=== PATIENT | female | born 1960 | race Caucasian/White ===

== ENCOUNTER → 2016-07-28 | Outpatient (CLI) | payer BC ==
--- NOTE | 2016-07-28 14:31 | PDGENHP ---
History and Physical - Chief Complaint acute loss of consciousness - History of Present Illness primary care provider: Dr. Pemberton HPI: 56-year-old female presenting with acute loss of consciousness characterized as sudden, with precipitating associated lightheadedness and feeling of weakness while she was undergoing mammography. The patient had not recently been repositioned and did not experience any trauma she was gently lowered to the floor by the mammography tach. Loss of consciousness lasted only several seconds and she regained consciousness without any intervention. The onset was at approximately 1:30 p.m. on 07/28/2016. Duration was only several seconds. She did not experience any postictal symptoms, no nausea, no vomiting, patient reports that she ate breakfast on the morning of presentation without any incidence. Although the patient reports that she has had similar episodes in the past, her denies these. Patient reports he had otherwise been feeling well on the day prior to this presentation and denies any other symptoms. Of note, the patient's systolic blood pressure was 130 and her heart rate was in the 80s when vital signs were checked several minutes after the episode. 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 Uterine cancer - Surgical History Additional surgical history: hysterectomy - Family History Additional family history: patient's mother lived to be 90 - Social History Smoking Status: Never smoked Alcohol Use: None Drug Use: None Additional social history: sedentary at baseline, splits time between [employer] 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 [employer] Review of Systems ROS: 10pt was reviewed & negative except for what was stated in HPI & below Neurological: Reports: weakness, other ( loss of consciousness) Physical Exam Constitutional: no apparent distress, appears nourished, not in pain Eyes: PERRL, anicteric sclera, EOMI Ears, Nose, Mouth, Throat: moist mucous membranes, hearing normal, ears appear normal, no oral mucosal ulcers Cardiovascular: regular rate and rhythym, no murmur, rub, or gallop, No carotid bruit, No edema Respiratory: no respiratory distress, no rales or rhonchi, clear to auscultation Gastrointestinal: normoactive bowel sounds, soft, non-tender abdomen, no palpable masses Neurologic: AAOx3, sensation intact bilaterally, other ( notable dysarthria), No weakness ( motor strength 5/5 bilateral upper and lower extremities) Psychiatric: interacting appropriately, not anxious, not encephalopathic, thought process linear Assessment & Plan Assessment: 56-year-old female experiencing acute syncopal episode, stat team called in mammography. Plan: 1. Syncope. Acute, new problem this provider, further workup is suggested. The patient experienced a syncopal episode and experienced recurrence of symptoms with a systolic blood pressure of 78. I suspect the patient is either orthostatic or experiencing some other specific etiology of her hypotension. That being said, the patient's systolic blood pressure was 130 with a heart rate of 80 on my physical exam of the patient, suggesting that her symptoms are mostly orthostatic and she may simply be hypovolemic. That being said, the patient should receive formal evaluation in the emergency department and this has been recommended to the patient and her . - heart monitor rhythm reviewed, demonstrates a normal sinus mechanism, personally interpreted - reviewed outside records including 12/18/2013 [employer] report by Kesha Ahumada, reports the patient has poor insight into her deficits and this may be somewhat influencing her present decision making - most recent lab work from 05/09/2016 demonstrating normocytic anemia with slight iron deficiency notably saturation of 11%, TIBC 412, iron level 44, suggesting the patient may have a slow insidious GI bleed contributing to her anemia verses an oral iron deficient component - if the patient does report to the emergency department, would recommend observation overnight after orthostatics have formally been performed, she has received IV fluids, she has received a formal EKG, and she has had lab work to ensure that she does not have any other insidious pathologies such as acute kidney injury, myocardial ischemia, worsening anemia, lactic acidosis -if the patient and her choose not to go to the emergency department, would recommend immediate follow-up at Dr. Pemberton office on the afternoon of this event It should be noted that this consultation was performed in the setting of responding to a stat team call while patient was in outpatient mammography.
== END ==
LOC: FIMAGING 13:17
DX: Z12.31 Encounter for screening mammogram for malignant neoplasm of breast (principal); Z53.8 Procedure and treatment not carried out for other reasons; R55 Syncope and collapse; D64.9 Anemia, unspecified; I95.9 Hypotension, unspecified
CPT/HCPCS: G0202

== ENCOUNTER → 2016-10-07 | Outpatient (CLI) | payer BC ==
[~2016-10-07] MED LIST: IOPAMIDOL (ISOVUE-300) 100 ML BTL ONE
== END ==
LOC: FIMAGING 11:35
PROVIDERS: ATTEND Surgery
DX: C18.9 Malignant neoplasm of colon, unspecified (principal); K80.20 Calculus of gallbladder without cholecystitis without obstruction; Q63.1 Lobulated, fused and horseshoe kidney
CPT/HCPCS: Q9967

== ENCOUNTER 2016-10-14 06:26 | Inpatient (IN) | payer BC ==
[2016-10-14] MEDS ORDERED: LIDOCAINE 1% 2 ML INJ ONE (07:39)
[2016-10-14] MEDS ORDERED: BUPIVACAINE 0.5% 30 ML SDV ONE (07:46)
[2016-10-14] MEDS ORDERED: LIDOCAINE 1% 300 MG/30 ML SDV ONE (07:46)
[2016-10-14] MEDS ORDERED: LIDOCAINE 1% 5 ML SDV ID PRN (07:52)
[2016-10-14] MEDS ORDERED: LR 1,000 ML IV ONE (07:52)
[2016-10-14] MEDS ORDERED: ERTAPENEM 1 GM in NS 100 ML IV ONE (08:31)
--- NOTE | 2016-10-14 09:51 | PDANEPAE ---
ANE History of Present Illness colon ca ANE Past Medical History - Cardiovascular History Hx Hypertension: No Hx Arrhythmias: No Hx Chest Pain: No Hx Coronary Artery / Peripheral Vascular Disease: No Hx CHF / Valvular Disease: No Hx Palpitations: No - Pulmonary History Hx COPD: No Hx Asthma/Reactive Airway Disease: No Hx Recent Upper Respiratory Infection: No Hx Oxygen in Use at Home: No - Neurologic History Hx Cerebrovascular Accident: Yes Hx Seizures: No Hx Dementia: No - Endocrine History Hx Diabetes: No - Renal History Hx Renal Disorders: No - Liver History Hx Hepatic Disorders: No - Neurological & Psychiatric Hx Hx Neurological and Psychiatric Disorders: No - Cancer History Hx Cancer: Yes - Congenital Disorder History Hx Congenital Disorders: No - GI History Hx Gastrointestinal Disorders: Yes - Chronic Pain History Chronic Pain: No ANE Review of Systems - Exercise capacity METS (RN): 4 METS - Systems Neurological: Reports: other (cva/trach-speech impediment, otherwise health) Hematologic/Lymphatic: Reports: blood clots (dvt/pe/cva) ANE Patient History - Allergies Allergies/Adverse Reactions: No Known Allergies Allergy (Verified 10/13/16 17:12) - Home Medications Home Medications: Rivaroxaban [Xarelto] 20 mg PO DAILY18 10/12/16 [Last Taken 10/11/16 21:00] - NPO status NPO Since - Liquids (Date): 10/13/16 NPO Since - Liquids (Time): 23:30 NPO Since - Solids (Date): 10/13/16 NPO Since - Solids (Time): 08:00 - Anes Hx Anes Hx: no prior problems - Smoking Hx Smoking Status: Never smoked ANE Labs/Vital Signs - Labs - CBC RBC: 34 - Labs - BMP Sodium: bmp reviewed and ok - Vital Signs Blood Pressure: 130/93 Heart Rate: 93 Respiratory Rate: 16 O2 Sat (%): 93 Height: 170.18 cm Weight: 81.647 kg ANE Physical Exam - Airway Neck exam: decreased ROM Mallampati Score: Class 2 Mouth exam: normal dental/mouth exam - Pulmonary Pulmonary: no respiratory distress - Cardiovascular Cardiovascular: regular rate and rhythym - ASA Status ASA Status: II ANE Anesthesia Plan Anesthesia Plan: general endotracheal anesthesia
[2016-10-14] MEDS ORDERED: MIDAZOLAM 2 MG/2 ML VIAL IVP ONE ×2 (09:59)
[2016-10-14] MEDS ORDERED: MIDAZOLAM 2 MG/2 ML VIAL ONE (10:07)
[2016-10-14] MEDS ORDERED: fentaNYL 100 MCG/2 ML INJ ONE (10:13)
[2016-10-14] MEDS ORDERED: PROPOFOL/EMULSION 500 MG/50 ML BOTTLE IV ONE (10:14)
[2016-10-14] MEDS ORDERED: LIDOCAINE 2% 100 MG/5 ML SYR ONE (10:15)
[2016-10-14] MEDS ORDERED: ONDANSETRON 4 MG/2 ML VIAL ONE ×4 (10:15→14:01)
[2016-10-14] MEDS ORDERED: ROCURONIUM 50 MG/5 ML VIAL ONE ×2 (10:15→12:26)
[2016-10-14] MEDS ORDERED: DEXAMETHASONE 4 MG/ML VIAL ONE ×2 (10:15)
[2016-10-14] MEDS ORDERED: epHEDrine SULFATE 10 MG/ML SYR ONE ×2 (10:31)
[2016-10-14] MEDS ORDERED: LIDOCAINE HCL 160 MG/4 ML LTA KIT TP ONE (11:39)
[2016-10-14] MEDS ORDERED: PETROLAT,WHT/MIN OIL/SOD CHL 3.5 GM OPHT.OINT ONE (11:39)
[2016-10-14] MEDS ORDERED: RANITIDINE 50 MG/2 ML VIAL ONE (11:40)
[2016-10-14] MEDS ORDERED: SUGAMMADEX SODIUM 200 MG/2 ML VIAL IVP ONE ×2 (11:40→14:18)
[2016-10-14] MEDS ORDERED: morphINE *ANESTHESIA ONLY* 10 MG/ML VIAL ONE (11:52)
[2016-10-14] MEDS ORDERED: PROPOFOL 200 MG/20 ML VIAL ONE ×3 (12:03→14:08)
[2016-10-14] MEDS ORDERED: PHENYLEPHRINE HCL 100 MCG/ML SYR ONE (13:02)
[2016-10-14] MEDS ORDERED: ONDANSETRON 4 MG/2 ML VIAL IVP PRN (13:55)
[2016-10-14] MEDS ORDERED: ACETAMINOPHEN 500 MG TAB PO PRN (13:55)
[2016-10-14] MEDS ORDERED: LABETALOL HCL 5 MG/ML 20 ML MDV IVP PRN (13:55)
[2016-10-14] MEDS ORDERED: fentaNYL 100 MCG/2 ML INJ IVP PRN (13:55)
[2016-10-14] MEDS ORDERED: LR 500 ML IV PRN (13:55)
[2016-10-14] MEDS ORDERED: NALOXONE HCL 0.4 MG/ML INJ IVP PRN (13:55)
[2016-10-14] MEDS ORDERED: ALBUTEROL 3 ML DEYVIAL IH PRN (13:55)
[2016-10-14] MEDS ORDERED: MEPERIDINE 25 MG/ML SYR IVP PRN (13:55)
[2016-10-14] MEDS ORDERED: PROMETHAZINE HCL 25 MG/ML INJ IVP PRN (13:55)
[2016-10-14] MEDS ORDERED: METOCLOPRAMIDE 10 MG/2 ML VIAL IVP PRN (13:55)
[2016-10-14] MEDS ORDERED: OXYCODONE/APAP 5/325 TAB PO PRN (13:55)
[2016-10-14] MEDS ORDERED: DEXAMETHASONE 4 MG/ML VIAL IVP PRN (13:55)
[2016-10-14] MEDS ORDERED: HYDROCODONE/APAP 5/325 TAB PO PRN (13:55)
--- NOTE | 2016-10-14 14:46 | POSTOPPROG ---
Post Op Note Date of Operation: 10/14/16 Surgeon: Robb Anderson Fire Observer: none Anesthesiologist: Joe Anesthesia: GET(General Endotracheal) Pre-op Diagnosis: Splenic flexure cancer Post-op Diagnosis: same Procedure: left colectomy Findings: large splenic mass, air tight anastomosis Inf/Abcess present in the surg proc area at time of surgery?: No EBL: 50-100 Complications: none Specimen(s): left colon proximal end stapled
[2016-10-14] MEDS: LR 1,000 ML IV SCH ×2 (16:03→23:22)
--- NOTE | 2016-10-14 18:43 | POSTANESTH ---
Post Anesthetic Evaluation Cardiovascular Status: Normal, Stable Respiratory Status: Normal, Stable Level of Consciousness/Mental Status: Can Participate in Eval Pain Control: Adequate, Prn Tx Ordered Nausea/Vomiting Control: Adequate, Prn Tx Ordered Complications Possibly Related to Anesthesia: None Noted
--- NOTE | 2016-10-15 05:09 | CPEKG ---
Heart Rate: 80 RR Interval: 750 P-R Interval: 156 QRSD Interval: 100 QT Interval: 364 QTC Interval: 420 P [place]: 63 QRS [place]: 39 T Wave [place]: 19 EKG Severity - BORDERLINE ECG - EKG Impression: SINUS RHYTHM Electronically Signed By: Heriberto Edwards 15-Oct-2016 08:55:21
[2016-10-15] MEDS: HEPARIN 5,000 UNIT/0.5 ML SYR SC SCH ×3 (06:41→20:52)
[2016-10-15] MEDS: LR 1,000 ML IV SCH ×2 (06:42→20:52)
[2016-10-15 07:38] LABS: % IMMATURE GRANULYOCYTES 0.5 % (0.0-1.1); ABSOLUTE IMMATURE GRANULOCYTES 0.06 10^3/uL (0.00-0.10); ADD DIFF? NO; ADD MORPH? NO; ADD SCAN? NO; ATYPICAL LYMPHOCYTE FLAG 0 (0-99); FRAGMENT RBC FLAG 20 (0-99); HEMATOCRIT 25.1 % (38.0-47.0); HEMOGLOBIN 7.8 g/dL (12.6-16.3); LEFT SHIFT FLG 20 (0-99); LIPEMIA HEMOLYSIS FLAG 80 (0-99); MEAN CELL HEMOGLOBIN 22.2 pg (27.9-34.1); MEAN CELL HEMOGLOBIN CONCENTR. 31.1 g/dL (32.4-36.7); MEAN CELL VOLUME 71.3 fL (81.5-99.8); MEAN PLATELET VOLUME 9.3 fL (8.7-11.7); PLATELET CLUMPS FLAG 0 (0-99); PLATELET COUNT 433 10^3/uL (150-400); RED BLOOD CELL COUNT 3.52 10^6/uL (4.18-5.33); RED CELL DISTRIBUTION WIDTH 16.3 % (11.5-15.2)
[2016-10-15 07:51] LABS: ANION GAP 5 mEq/L (8-16); CALCIUM 8.4 mg/dL (8.5-10.4); CARBON DIOXIDE 24 mEq/l (22-31); CHLORIDE 107 mEq/L (97-110); CREATININE 0.8 mg/dL (0.6-1.0); GLOMERULAR FILTRATION RATE > 60; GLUCOSE 124 mg/dL (70-100); POTASSIUM 3.7 mEq/L (3.5-5.2); SODIUM 136 mEq/L (134-144)
[2016-10-15 08:02] LABS: TROPONIN I < 0.012 ng/mL (0-0.034)
[2016-10-15] MEDS ORDERED: KETOROLAC 30 MG/1 ML SDV IVP ONE (08:26)
--- NOTE | 2016-10-15 09:14 | SOAPPROG ---
SOAP Progress Note Assessment/Plan: Assessment/Plan: POD#1 c/o chest pain this am. EKG normal. troponin nl. Hx of embolus Heparin started, Xarelto ordered for 10/15 VSS Hgb/Hct 7.8/24 from 03/02 Min OR blood loss Abd distended likely post op acute blood loss anemia 2 units pRBC ordered. Cont clear liq Medicine consult Will see later today H/H after transfusion 10/15/16 09:11 Objective: Vital Signs Temp Pulse Resp BP Pulse Ox 36.2 C 90 18 116/71 94 10/15/16 07:57 10/15/16 07:57 10/15/16 07:57 10/15/16 07:57 10/15/16 07:57 Laboratory Results 10/15/16 07:30 10/15/16 07:30 10/14/16 10/15/16 10/16/16 05:59 05:59 05:59 Intake Total 2900 Output Total 650 Balance 2250 ICD10 Worksheet Patient Problems: Problems Problem Status Onset Colon adenocarcinoma Acute - ICD10 Problem Qualifiers (1) Colon adenocarcinoma
--- NOTE | 2016-10-15 13:18 | GCON ---
[f rep st] CONSULTATION INTERNAL MEDICINE CONSULTATION DATE OF CONSULTATION: 10/14/2016 REFERRING PHYSICIAN: Robb Anderson MD REASON FOR CONSULTATION: History of PE, chest pain. HISTORY OF PRESENT ILLNESS: This is a 56-year-old female who underwent a partial colectomy yesterda y for a large splenic flexure mass that was adenocarcinoma. This was found from routine screening c olonoscopy. She does have probable iron deficiency anemia. She has a history of a massive PE resul ting in cardiac arrest and a 3 week hospital stay in [place]. At that time, she was found to have a uterine mass and uterine cancer, and that was resected later on. She has been on Xarelto for antic oagulation. This was discontinued several days prior to surgery. This morning, she had some chest pain, but it is now resolved. She is denying any shortness of breath at this time. She has a littl e bit of throat irritation. She does also complain of abdominal distention. No flatus today. REVIEW OF SYSTEMS: 10-point review of systems obtained, other than stated above is negative. PAST MEDICAL HISTORY: 1. Uterine cancer. 2. History of PE and DVT. PAST SURGICAL HISTORY: Knee surgery, tracheostomy, PEG tube, hysterectomy. FAMILY HISTORY: Mother with hypertension. SOCIAL HISTORY: No smoking. Occasional alcohol. PHYSICAL EXAMINATION: VITAL SIGNS: Afebrile, blood pressure is 117/73, heart rate 80, oxygen satur ation is at 97% on 1 L. GENERAL: Patient is well developed, no apparent distress. HEENT: Nonicte emelyn sclerae. Extraocular movements intact. Moist mucous membranes. NECK: Supple. A little bit o f fullness in the thyroid area. LUNGS: Good effort. Clear to auscultation bilaterally. CARDIOVAS CULAR: Regular rate and rhythm. No murmurs, gallops. ABDOMEN: Distended. Midline incision noted . Decreased bowel sounds. Soft. Mild tenderness. EXTREMITIES: No clubbing, cyanosis, or edema. SKIN: Without rash, warm, intact. NEUROLOGIC: Awake, alert, and oriented x3, moving all 4 extrem ities equally. PSYCH: Normal mood and affect. LABORATORIES: White blood cell count is 12 hemoglobin 7.8 with a preoperative hemoglobin of 10.5. There is a microcytic anemia. She had a ferritin of 6 in May of this year. CEA is 3. Troponin negative today. EKG personally reviewed and interpreted showed normal sinus rhythm, no ischemic changes. ASSESSMENT: This is a 56-year-old female who is status post partial colectomy due to colon cancer a nd a previous history of massive pulmonary embolism and deep venous thrombosis. PLAN: 1. Colon cancer. This has been resected. Further management per Surgery. 2. Chest pain. This has resolved, and EKG is negative. Troponin is negative as well. I think thi s is unlikely to be a PE as her symptoms have resolved and she has not been off her anticoagulation that long. We will continue to monitor. 3. History of PE and DVT. It looks like she has been started on subcu heparin today with a plan of starting Xarelto tonight. I will discuss it with Dr. Anderson but probably prefer maybe a day of fu ll dose Lovenox prior as this is completely metabolized within 12 hours in case there is some bleedi ng complication. It does take longer for Xarelto it seems to come out of the system. She does have normal creatinine. 4. Iron deficiency anemia. We will give a few doses of IV iron while she is here in the hospital. It appears that she has been written for a little bit of blood. Thank you for this consultation. Will follow with you. /[id number]/MODL
[2016-10-15] MEDS: SODIUM FERRIC GLUCONAT/SUCROSE 125 MG in NS 100 ML IV SCH (15:44)
[2016-10-15] MEDS ORDERED: RIVAROXABAN 20 MG TAB PO SCH (18:00)
[2016-10-15 18:55] LABS: HEMOGLOBIN 9.3 g/dL (12.6-16.3)
[2016-10-16 05:06] LABS: % IMMATURE GRANULYOCYTES 0.5 % (0.0-1.1); ABSOLUTE IMMATURE GRANULOCYTES 0.06 10^3/uL (0.00-0.10); ADD DIFF? NO; ADD MORPH? NO; ADD SCAN? NO; ATYPICAL LYMPHOCYTE FLAG 0 (0-99); FRAGMENT RBC FLAG 0 (0-99); HEMATOCRIT 28.6 % (38.0-47.0); HEMOGLOBIN 9.1 g/dL (12.6-16.3); LEFT SHIFT FLG 0 (0-99); LIPEMIA HEMOLYSIS FLAG 80 (0-99); MEAN CELL HEMOGLOBIN 23.5 pg (27.9-34.1); MEAN CELL HEMOGLOBIN CONCENTR. 31.8 g/dL (32.4-36.7); MEAN CELL VOLUME 73.7 fL (81.5-99.8); MEAN PLATELET VOLUME 9.1 fL (8.7-11.7); PLATELET CLUMPS FLAG 0 (0-99); PLATELET COUNT 328 10^3/uL (150-400); RED BLOOD CELL COUNT 3.88 10^6/uL (4.18-5.33)
[2016-10-16 05:24] LABS: ALANINE AMINOTRANSFERASE 25 IU/L (9-52); ALBUMIN 2.4 g/dL (3.5-5.0); ALKALINE PHOSPHATASE 51 IU/L (38-126); ANION GAP 3 mEq/L (8-16); ASPARTATE AMINOTRANSFERASE 24 IU/L (14-46); CALCIUM 8.2 mg/dL (8.5-10.4); CARBON DIOXIDE 24 mEq/l (22-31); CHLORIDE 107 mEq/L (97-110); CREATININE 0.7 mg/dL (0.6-1.0); GLOMERULAR FILTRATION RATE > 60; GLUCOSE 101 mg/dL (70-100); POTASSIUM 3.7 mEq/L (3.5-5.2); SODIUM 134 mEq/L (134-144); TOTAL PROTEIN 4.4 g/dL (6.3-8.2)
[2016-10-16] MEDS: HEPARIN 5,000 UNIT/0.5 ML SYR SC SCH ×2 (05:25→13:41)
[2016-10-16] MEDS: SODIUM FERRIC GLUCONAT/SUCROSE 125 MG in NS 100 ML IV SCH (08:55)
[2016-10-16] MEDS: LR 1,000 ML IV SCH ×2 (14:47→23:01)
--- NOTE | 2016-10-16 15:25 | HOSPPROG ---
Hospitalist Progress Note Assessment/Plan: * colon cancer status post resection * Doing well * Diet will be advanced * Possibly home tomorrow * chest pain * Troponins are negative * Chest pain is resolved * Possibly musculoskeletal or GERD * history of massive PE * Restart Xarelto tonight * iron deficiency anemia/acute blood loss anemia * Hemoglobin stable * Continue IV iron Subjective: No new complaints. Denies chest pain. Abdominal distention better. Passing gas and having some bowel movement Objective: Vital Signs Temp Pulse Resp BP Pulse Ox 37.5 C 79 16 111/65 92 10/16/16 07:46 10/16/16 07:46 10/16/16 07:46 10/16/16 07:46 10/16/16 07:46 Laboratory Results 10/16/16 04:53 10/16/16 04:53 10/15/16 10/16/16 10/17/16 05:59 05:59 05:59 Intake Total 2900 1220 Output Total 650 1075 Balance 2250 145 Discussed with surgery - Physical Exam Constitutional: no apparent distress, appears nourished, not in pain Eyes: anicteric sclera, EOMI Ears, Nose, Mouth, Throat: moist mucous membranes, hearing normal, ears appear normal Cardiovascular: regular rate and rhythym, no murmur, rub, or gallop Respiratory: no respiratory distress, no rales or rhonchi Gastrointestinal: normoactive bowel sounds, other (Slightly distended soft nontender) Skin: warm Neurologic: AAOx3 Psychiatric: interacting appropriately, not anxious, not encephalopathic, thought process linear ICD10 Worksheet Patient Problems: Problems Problem Status Onset Colon adenocarcinoma Acute
--- NOTE | 2016-10-16 16:15 | SOAPPROG ---
SOAP Progress Note Assessment/Plan: Assessment/Plan: POD#2 c/o chest pain yesterday. It has since resolved. EKG normal. troponin nl. Hx of embolus Heparin started, Xarelto ordered for 10/16 VSS Bowel movement and flatus today Regular rate and rhythm Clear to auscultation bilaterally Abdomen is soft nondistended incision clean dry and intact no signs of infection or herniation Extremities without edema Advance to low residue diet,. Subq heparin and start Xarelto Appreciate Medicine consult Anticipate 24-48 hour hospital stay 10/15/16 09:11 10/16/16 16:13 Objective: Vital Signs Temp Pulse Resp BP Pulse Ox 37.1 C 82 16 138/76 H 91 L 10/16/16 15:28 10/16/16 15:28 10/16/16 15:28 10/16/16 15:28 10/16/16 15:28 Laboratory Results 10/16/16 04:53 10/16/16 04:53 10/15/16 10/16/16 10/17/16 05:59 05:59 05:59 Intake Total 2900 1220 300 Output Total 650 1075 700 Balance 2250 145 -400 ICD10 Worksheet Patient Problems: Problems Problem Status Onset Colon adenocarcinoma Acute - ICD10 Problem Qualifiers (1) Colon adenocarcinoma
[2016-10-16] MEDS ORDERED: oxyCODONE IR 5 MG TAB PO PRN (16:17)
[2016-10-16] MEDS: RIVAROXABAN 20 MG TAB PO SCH (17:52)
[2016-10-16] MEDS: ACETAMINOPHEN 325 MG TAB PO PRN (18:26)
[2016-10-17] MEDS: LR 1,000 ML IV SCH (06:11)
--- NOTE | 2016-10-17 07:31 | SOAPPROG ---
SOAP Progress Note Assessment/Plan: Assessment/Plan: POD#3 status post left colectomy for obstructing colon cancer 10/16/16 04:53 10/16/16 04:53 Patient ABO/Rh A POSITIVE 10/14/16 08:10 Total Bilirubin 2.0 mg/dL (0.1-1.4) H 10/16/16 04:53 AST 24 IU/L (14-46) 10/16/16 04:53 ALT 25 IU/L (9-52) 10/16/16 04:53 No complaints tylenol for pain Tolerating diet liquid stool VSS Regular rate and rhythm Clear to auscultation bilaterally Abdomen is soft nondistended incision clean dry and intact no signs of infection or herniation Extremities without edema Advanced to low residue diet. Xarelto Appreciate Medicine consult Fiber in diet repeat CBC 10/18 Anticipate 24-48 hour hospital stay 10/15/16 09:11 10/16/16 16:13 10/17/16 07:28 Objective: Vital Signs Temp Pulse Resp BP Pulse Ox 36.9 C 70 16 123/76 H 93 10/17/16 04:00 10/17/16 04:00 10/17/16 04:00 10/17/16 04:00 10/17/16 04:00 Laboratory Results 10/16/16 04:53 10/16/16 04:53 10/16/16 10/17/16 10/18/16 05:59 05:59 05:59 Intake Total 1220 600 Output Total 1075 2700 350 Balance 145 -2100 -350 ICD10 Worksheet Patient Problems: Problems Problem Status Onset Colon adenocarcinoma Acute - ICD10 Problem Qualifiers (1) Colon adenocarcinoma
--- NOTE | 2016-10-17 10:07 | HOSPPROG ---
Hospitalist Progress Note Assessment/Plan: * colon cancer status post resection * Doing well * diet advancing * chest pain * Troponins are negative * Chest pain is resolved * Possibly musculoskeletal or GERD * history of massive PE * Restart Xarelto tonight * iron deficiency anemia/acute blood loss anemia * Hemoglobin stable * Continue IV iron for 3 doses total Subjective: no new complaints. Beginning to tolerate diet Objective: Vital Signs Temp Pulse Resp BP Pulse Ox 36.6 C 61 18 103/66 96 10/17/16 09:01 10/17/16 09:01 10/17/16 09:01 10/17/16 09:01 10/17/16 09:01 Laboratory Results 10/16/16 04:53 10/16/16 04:53 10/16/16 10/17/16 10/18/16 05:59 05:59 05:59 Intake Total 1220 600 Output Total 1075 2700 350 Balance 145 -2100 -350 - Physical Exam Constitutional: no apparent distress, appears nourished, not in pain Eyes: anicteric sclera, EOMI Ears, Nose, Mouth, Throat: moist mucous membranes, hearing normal Respiratory: no respiratory distress Gastrointestinal: normoactive bowel sounds, soft, non-tender abdomen, other ( slight distention) Neurologic: AAOx3 Psychiatric: interacting appropriately, not anxious, not encephalopathic, thought process linear ICD10 Worksheet Patient Problems: Problems Problem Status Onset Colon adenocarcinoma Acute
[2016-10-17] MEDS: SODIUM FERRIC GLUCONAT/SUCROSE 125 MG in NS 100 ML IV SCH (10:26)
[2016-10-17] MEDS: PSYLLIUM METAMUCIL 1 PKT PO SCH (10:31)
[2016-10-17] MEDS: ONDANSETRON 4 MG/2 ML VIAL IVP PRN (13:52)
[2016-10-17] MEDS: PROMETHAZINE HCL 25 MG/ML INJ IVP PRN ×2 (18:42→21:19)
[2016-10-17] MEDS: RIVAROXABAN 20 MG TAB PO SCH (18:42)
[2016-10-18] MEDS: PROMETHAZINE HCL 25 MG/ML INJ IVP PRN ×3 (04:53→14:50)
[2016-10-18 05:18] LABS: HEMATOCRIT 35.6 % (38.0-47.0); HEMOGLOBIN 10.9 g/dL (12.6-16.3); MEAN CELL HEMOGLOBIN 22.9 pg (27.9-34.1); MEAN CELL HEMOGLOBIN CONCENTR. 30.6 g/dL (32.4-36.7); MEAN CELL VOLUME 74.9 fL (81.5-99.8); RED BLOOD CELL COUNT 4.75 10^6/uL (4.18-5.33); RED CELL DISTRIBUTION WIDTH 17.3 % (11.5-15.2)
[2016-10-18] MEDS: PSYLLIUM METAMUCIL 1 PKT PO SCH (08:09)
[2016-10-18] MEDS ORDERED: D5W 1/2 NS W/ 20 KCl/L 1,000 ML IV SCH (10:15)
--- NOTE | 2016-10-18 10:56 | HOSPPROG ---
Hospitalist Progress Note Assessment/Plan: * colon cancer status post resection * persistent nausea * chest pain * Troponins are negative * Chest pain is resolved * Possibly musculoskeletal or GERD * GERD * we will start Pepcid * vomiting * is passing gas * abdomen is benign * perhaps persistent effects of anesthesia * try premedicating with anti nausea medicine * history of massive PE * continue Xarelto * iron deficiency anemia/acute blood loss anemia * status post 3 doses of IV iron Subjective: Had vomiting yesterday. Is still nauseous. Is complaining of some heartburn. Objective: Vital Signs Temp Pulse Resp BP Pulse Ox 37.0 C 82 14 112/80 96 10/18/16 08:00 10/18/16 08:00 10/18/16 08:00 10/18/16 08:00 10/18/16 08:00 Laboratory Results 10/18/16 05:00 10/16/16 04:53 10/17/16 10/18/16 10/19/16 05:59 05:59 05:59 Intake Total 600 450 Output Total 2700 1250 Balance -2100 -800 - Physical Exam Constitutional: no apparent distress, appears nourished, not in pain Eyes: anicteric sclera Ears, Nose, Mouth, Throat: hearing normal Cardiovascular: regular rate and rhythym, no murmur, rub, or gallop Respiratory: no respiratory distress, no rales or rhonchi, clear to auscultation Gastrointestinal: other ( Distended soft. Nontender. Decreased bowel sounds) Skin: warm Neurologic: AAOx3 Psychiatric: interacting appropriately, not anxious, not encephalopathic, thought process linear ICD10 Worksheet Patient Problems: Problems Problem Status Onset Colon adenocarcinoma Acute
[2016-10-18] MEDS: FAMOTIDINE 20 MG/NACL 50 ML IV SCH ×2 (11:01→21:02)
[2016-10-18] MEDS: ONDANSETRON 4 MG/2 ML VIAL IVP PRN (11:01)
[2016-10-18 16:38] LABS: ALANINE AMINOTRANSFERASE 25 IU/L (9-52); ALBUMIN 2.7 g/dL (3.5-5.0); ALKALINE PHOSPHATASE 56 IU/L (38-126); ANION GAP 11 mEq/L (8-16); ASPARTATE AMINOTRANSFERASE 17 IU/L (14-46); BILIRUBIN,TOTAL 1.1 mg/dL (0.1-1.4); CALCIUM 9.1 mg/dL (8.5-10.4); CARBON DIOXIDE 18 mEq/l (22-31); CHLORIDE 108 mEq/L (97-110); CREATININE 0.7 mg/dL (0.6-1.0); GLOMERULAR FILTRATION RATE > 60; GLUCOSE 101 mg/dL (70-100); SODIUM 137 mEq/L (134-144); TOTAL PROTEIN 5.2 g/dL (6.3-8.2)
[2016-10-18] MEDS ORDERED: DIAZEPAM 10 MG/2 ML SYR IVP ONE (17:45)
[2016-10-18] MEDS ORDERED: NS 1,000 ML IV ONE (17:57)
--- NOTE | 2016-10-18 17:57 | SOAPPROG ---
SOAP Progress Note Assessment/Plan: Assessment/Plan: POD#3 status post left colectomy for obstructing colon cancer 10/16/16 04:53 10/16/16 04:53 Patient ABO/Rh A POSITIVE 10/14/16 08:10 Total Bilirubin 2.0 mg/dL (0.1-1.4) H 10/16/16 04:53 AST 24 IU/L (14-46) 10/16/16 04:53 ALT 25 IU/L (9-52) 10/16/16 04:53 No complaints tylenol for pain Vomited overnight Less liquid stool VSS Regular rate and rhythm Clear to auscultation bilaterally Abdomen is soft mildly distended incision clean dry and intact no signs of infection or herniation Extremities without edema Back down to sips Xarelto Appreciate Medicine consult May have leak although WBC normal. Increased platelet count/bicarb 18 Will reevaluate early 10/19 repeat cbc/bmp in am start IVF (bolus to catch up) Anticipate 24-48 hour hospital stay 10/18/16 17:54 Objective: Vital Signs Temp Pulse Resp BP Pulse Ox 37.1 C 99 18 118/80 92 10/18/16 16:00 10/18/16 16:00 10/18/16 16:00 10/18/16 16:00 10/18/16 16:00 Laboratory Results 10/18/16 05:00 10/18/16 16:15 10/17/16 10/18/16 10/19/16 05:59 05:59 05:59 Intake Total 600 450 Output Total 2700 1250 1000 Balance -2100 -800 -1000 ICD10 Worksheet Patient Problems: Problems Problem Status Onset Colon adenocarcinoma Acute - ICD10 Problem Qualifiers (1) Colon adenocarcinoma
[2016-10-18] MEDS: RIVAROXABAN 20 MG TAB PO SCH (18:21)
[2016-10-18] MEDS: D5W 1/2 NS W/ 20 KCl/L 1,000 ML IV SCH (18:23)
[2016-10-19] MEDS: ONDANSETRON 4 MG/2 ML VIAL IVP PRN ×2 (02:05→07:54)
[2016-10-19] MEDS: PROMETHAZINE HCL 25 MG/ML INJ IVP PRN (04:30)
[2016-10-19] MEDS: D5W 1/2 NS W/ 20 KCl/L 1,000 ML IV SCH ×2 (04:31→16:05)
[2016-10-19 04:35] LABS: ABSOLUTE IMMATURE GRANULOCYTES 0.11 10^3/uL (0.00-0.10); ADD DIFF? NO; ADD MORPH? NO; ADD SCAN? NO; ATYPICAL LYMPHOCYTE FLAG 10 (0-99); FRAGMENT RBC FLAG 20 (0-99); HEMATOCRIT 37.7 % (38.0-47.0); HEMOGLOBIN 11.6 g/dL (12.6-16.3); LEFT SHIFT FLG 10 (0-99); LIPEMIA HEMOLYSIS FLAG 80 (0-99); MEAN CELL HEMOGLOBIN 23.2 pg (27.9-34.1); MEAN CELL HEMOGLOBIN CONCENTR. 30.8 g/dL (32.4-36.7); MEAN CELL VOLUME 75.2 fL (81.5-99.8); PLATELET CLUMPS FLAG 0 (0-99); PLATELET COUNT 551 10^3/uL (150-400); RED BLOOD CELL COUNT 5.01 10^6/uL (4.18-5.33); RED CELL DISTRIBUTION WIDTH 18.5 % (11.5-15.2)
[2016-10-19 04:49] LABS: ALANINE AMINOTRANSFERASE 25 IU/L (9-52); ALBUMIN 2.3 g/dL (3.5-5.0); ALKALINE PHOSPHATASE 49 IU/L (38-126); ANION GAP 9 mEq/L (8-16); ASPARTATE AMINOTRANSFERASE 14 IU/L (14-46); BILIRUBIN,TOTAL 0.9 mg/dL (0.1-1.4); CALCIUM 8.7 mg/dL (8.5-10.4); CARBON DIOXIDE 18 mEq/l (22-31); CHLORIDE 109 mEq/L (97-110); CREATININE 0.7 mg/dL (0.6-1.0); GLOMERULAR FILTRATION RATE > 60; GLUCOSE 140 mg/dL (70-100); POTASSIUM 3.8 mEq/L (3.5-5.2); SODIUM 136 mEq/L (134-144); TOTAL PROTEIN 4.7 g/dL (6.3-8.2)
[2016-10-19] MEDS: FAMOTIDINE 20 MG/NACL 50 ML IV SCH ×2 (07:59→21:06)
[2016-10-19] MEDS: PSYLLIUM METAMUCIL 1 PKT PO SCH ×2 (08:00→08:59)
[2016-10-19] MEDS ORDERED: NS 500 ML IV ONE ×2 (10:01→10:30)
--- NOTE | 2016-10-19 10:12 | HOSPPROG ---
Hospitalist Progress Note Assessment/Plan: * colon cancer status post resection * persistent nausea and abdominal distention but no pain * Surgeries has mentioned possibility of leak although not having any pain. * Will check lactate and procalcitonin * Hold Xarelto * history of massive PE in setting of previous uterine cancer several years ago * Hold Xarelto * Can start heparin or Lovenox tomorrow depending on plan * iron deficiency anemia/acute blood loss anemia * status post 3 doses of IV iron * nutrition * We are now 5 days out from surgery with no indication of when she will begin p.o. nutrition * Consider TPN * chest pain several days ago * Troponins are negative * Chest pain is resolved * Possibly musculoskeletal or GERD * patient is high risk Subjective: Still not feeling well. Nauseous some vomiting. No abdominal pain though. Feeling dizzy when getting up Objective: Vital Signs Temp Pulse Resp BP Pulse Ox 37.0 C 98 22 H 138/98 H 92 10/19/16 08:00 10/19/16 08:00 10/19/16 08:00 10/19/16 08:00 10/19/16 08:00 Laboratory Results 10/19/16 04:18 10/19/16 04:18 10/18/16 10/19/16 10/20/16 05:59 05:59 05:59 Intake Total 450 951 Output Total 1250 1600 Balance -800 649 - Physical Exam Constitutional: no apparent distress, appears nourished, not in pain Eyes: anicteric sclera, EOMI Ears, Nose, Mouth, Throat: moist mucous membranes, hearing normal Cardiovascular: regular rate and rhythym, no murmur, rub, or gallop Respiratory: no respiratory distress, no rales or rhonchi, clear to auscultation Gastrointestinal: other (Decreased bowel sounds distended but soft and nontender ) Skin: warm Neurologic: AAOx3 Psychiatric: interacting appropriately, not anxious, not encephalopathic, thought process linear ICD10 Worksheet Patient Problems: Problems Problem Status Onset Colon adenocarcinoma Acute
[2016-10-19] MEDS ORDERED: IOPAMIDOL (ISOVUE-300) 100 ML BTL ONE (15:11)
--- NOTE | 2016-10-19 17:45 | SOAPPROG ---
SOAP Progress Note Assessment/Plan: Assessment/Plan: POD#3 status post left colectomy for obstructing colon cancer 10/16/16 04:53 10/16/16 04:53 Patient ABO/Rh A POSITIVE 10/14/16 08:10 Total Bilirubin 2.0 mg/dL (0.1-1.4) H 10/16/16 04:53 AST 24 IU/L (14-46) 10/16/16 04:53 ALT 25 IU/L (9-52) 10/16/16 04:53 No complaints tylenol for pain Vomited overnight Less liquid stool VSS Regular rate and rhythm Clear to auscultation bilaterally Abdomen is soft mildly distended incision clean dry and intact no signs of infection or herniation Extremities without edema Back down to sips Xarelto held Appreciate Medicine consult May have leak although WBC normal. Increased platelet count/bicarb 18 CT scan today does not demonstrate a leak or free air Some ascitic fluid likely postoperative Ileus. Continue to monitor for now. Encourage ambulation 10/18/16 17:54 10/19/16 17:44 Objective: Vital Signs Temp Pulse Resp BP Pulse Ox 36.9 C 87 24 H 143/88 H 92 10/19/16 15:05 10/19/16 15:05 10/19/16 15:05 10/19/16 15:05 10/19/16 15:05 Laboratory Results 10/19/16 04:18 10/19/16 04:18 10/18/16 10/19/16 10/20/16 05:59 05:59 05:59 Intake Total 450 951 Output Total 1250 1600 Balance -626 -644 ICD10 Worksheet Patient Problems: Problems Problem Status Onset Colon adenocarcinoma Acute - ICD10 Problem Qualifiers (1) Colon adenocarcinoma
[2016-10-20] MEDS: D5W 1/2 NS W/ 20 KCl/L 1,000 ML IV SCH ×4 (02:20→23:46)
[2016-10-20 04:54] LABS: % IMMATURE GRANULYOCYTES 0.6 % (0.0-1.1); ABSOLUTE IMMATURE GRANULOCYTES 0.05 10^3/uL (0.00-0.10); ADD DIFF? NO; ADD MORPH? NO; ADD SCAN? NO; ATYPICAL LYMPHOCYTE FLAG 30 (0-99); FRAGMENT RBC FLAG 20 (0-99); HEMATOCRIT 32.2 % (38.0-47.0); HEMOGLOBIN 9.9 g/dL (12.6-16.3); LEFT SHIFT FLG 0 (0-99); LIPEMIA HEMOLYSIS FLAG 80 (0-99); MEAN CELL HEMOGLOBIN 23.2 pg (27.9-34.1); MEAN CELL HEMOGLOBIN CONCENTR. 30.7 g/dL (32.4-36.7); MEAN CELL VOLUME 75.4 fL (81.5-99.8); MEAN PLATELET VOLUME 8.7 fL (8.7-11.7); PLATELET CLUMPS FLAG 0 (0-99); PLATELET COUNT 442 10^3/uL (150-400); RED BLOOD CELL COUNT 4.27 10^6/uL (4.18-5.33); RED CELL DISTRIBUTION WIDTH 18.5 % (11.5-15.2)
[2016-10-20 05:10] LABS: ANION GAP 5 mEq/L (8-16); CALCIUM 8.2 mg/dL (8.5-10.4); CARBON DIOXIDE 23 mEq/l (22-31); CHLORIDE 109 mEq/L (97-110); CREATININE 0.7 mg/dL (0.6-1.0); GLOMERULAR FILTRATION RATE > 60; GLUCOSE 109 mg/dL (70-100); POTASSIUM 3.5 mEq/L (3.5-5.2); SODIUM 137 mEq/L (134-144)
[2016-10-20] MEDS: FAMOTIDINE 20 MG/NACL 50 ML IV SCH ×2 (07:31→20:16)
[2016-10-20] MEDS ORDERED: POTASSIUM CL 20 MEQ TAB PO ONE (09:01)
--- NOTE | 2016-10-20 09:05 | HOSPPROG ---
Hospitalist Progress Note Assessment/Plan: * colon cancer status post resection POD #6 * persistent nausea and abdominal distention but no pain * Surgery has mentioned possibility of leak although not having any pain and CT did not show a leak * lactate normal. PCT not elevated. * history of massive PE in setting of previous uterine cancer several years ago * Pt refused Lovenox, will resume Xarelto, ok with surgery * iron deficiency anemia/acute blood loss anemia * status post 3 doses of IV iron * nutrition * We are now 6 days out from surgery, plans to start clears today * chest pain several days ago * Troponins are negative * Chest pain is resolved * Possibly musculoskeletal or GERD * patient is high risk Subjective: Pt denies pain. She feels she wants to get up to have a BM. No fevers. No e/o active bleeding. No N/V. Objective: Vital Signs Temp Pulse Resp BP Pulse Ox 36.7 C 77 18 135/85 H 94 10/20/16 07:26 10/20/16 07:26 10/20/16 07:26 10/20/16 07:26 10/20/16 07:26 Laboratory Results 10/20/16 04:40 10/20/16 04:40 10/19/16 10/20/16 10/21/16 05:59 05:59 05:59 Intake Total 951 2068 Output Total 1600 Balance -649 2068 - Physical Exam Constitutional: no apparent distress Eyes: PERRL Ears, Nose, Mouth, Throat: moist mucous membranes Cardiovascular: regular rate and rhythym Respiratory: no respiratory distress, clear to auscultation Gastrointestinal: other (soft, moderate distention, non-tender, no r/r/g, + hypoactive BS) Skin: warm Musculoskeletal: full muscle strength Neurologic: AAOx3 Psychiatric: anxious ICD10 Worksheet Patient Problems: Problems Problem Status Onset Colon adenocarcinoma Acute
[2016-10-20] MEDS ORDERED: ENOXAPARIN 80 MG/0.8 ML SYR SC SCH (09:20)
[2016-10-20] MEDS: PSYLLIUM METAMUCIL 1 PKT PO SCH (09:42)
--- NOTE | 2016-10-20 16:28 | SOAPPROG ---
SOAP Progress Note Assessment/Plan: Assessment/Plan: POD#3 status post left colectomy for obstructing colon cancer 10/16/16 04:53 10/16/16 04:53 Patient ABO/Rh A POSITIVE 10/14/16 08:10 Total Bilirubin 2.0 mg/dL (0.1-1.4) H 10/16/16 04:53 AST 24 IU/L (14-46) 10/16/16 04:53 ALT 25 IU/L (9-52) 10/16/16 04:53 No complaints tylenol for pain No more nausea/emesis Liquid stool VSS Regular rate and rhythm Clear to auscultation bilaterally Abdomen is soft mildly distended incision clean dry and intact no signs of infection or herniation Extremities without edema Xarelto held will restart today Appreciate Medicine consult May have leak although WBC normal. Increased platelet count/bicarb 18 CT scan yesterday did not demonstrate a leak or free air Some ascitic fluid likely postoperative Ileus resolving slowly. Clear liq diet Continue to monitor for now. Encourage ambulation 10/18/16 17:54 10/19/16 17:44 10/20/16 16:27 Objective: Vital Signs Temp Pulse Resp BP Pulse Ox 36.9 C 81 18 122/65 H 91 L 10/20/16 12:00 10/20/16 12:00 10/20/16 12:00 10/20/16 12:00 10/20/16 12:00 Laboratory Results 10/20/16 04:40 10/20/16 04:40 10/19/16 10/20/16 10/21/16 05:59 05:59 05:59 Intake Total 951 2068 Output Total 1600 600 Balance -649 2068 -600 ICD10 Worksheet Patient Problems: Problems Problem Status Onset Colon adenocarcinoma Acute - ICD10 Problem Qualifiers (1) Colon adenocarcinoma
[2016-10-20] MEDS: RIVAROXABAN 20 MG TAB PO SCH (17:47)
[2016-10-20] MEDS: ACETAMINOPHEN 325 MG TAB PO PRN (17:48)
[2016-10-21 05:11] LABS: HEMATOCRIT 31.4 % (38.0-47.0); HEMOGLOBIN 9.8 g/dL (12.6-16.3); LIPEMIA HEMOLYSIS FLAG 80 (0-99); MEAN CELL HEMOGLOBIN 23.6 pg (27.9-34.1); MEAN CELL HEMOGLOBIN CONCENTR. 31.2 g/dL (32.4-36.7); MEAN CELL VOLUME 75.5 fL (81.5-99.8); PLATELET COUNT 434 10^3/uL (150-400); RED BLOOD CELL COUNT 4.16 10^6/uL (4.18-5.33); RED CELL DISTRIBUTION WIDTH 18.9 % (11.5-15.2)
[2016-10-21] MEDS: FAMOTIDINE 20 MG/NACL 50 ML IV SCH ×2 (08:37→22:04)
[2016-10-21] MEDS: PSYLLIUM METAMUCIL 1 PKT PO SCH (08:39)
--- NOTE | 2016-10-21 09:38 | SOAPPROG ---
SOAP Progress Note Assessment/Plan: Assessment: POD 4 s/p left colectomy for obstructing colon can. Patient resting in bed, ambulating without difficulty. Pain controlled. + BM, tolerating clear liquids. Patient hesitant to advance diet. BP 116/83, HR 80s, afeb, 93% 1.5L NC, WBC 6.4 , H/H 9.8/ 31.4, plt 434, Path: colonic adenocarcinoma, invasive 11cm max dimension, negative lymph nodes (not discussed with patient as of yet), pT4b. A& O x 3, abd: soft, distended, non tender Incision- clean, dry, intact Plan: Dr. Anderson to come back and discuss pathology results with patient and at bedside. D/C IV fluids, continue oral clear liquids for today. Encouraged ambulation. Home soon. Plan: 10/21/16 09:34 Objective: Vital Signs Temp Pulse Resp BP Pulse Ox 36.9 C 93 20 116/83 H 93 10/21/16 07:15 10/21/16 07:15 10/21/16 07:15 10/21/16 07:15 10/21/16 07:15 Laboratory Results 10/21/16 04:39 10/20/16 04:40 10/20/16 10/21/16 10/22/16 05:59 05:59 05:59 Intake Total 2067 2820 Output Total 1600 900 Balance 2068 1220 -900 ICD10 Worksheet Patient Problems: Problems Problem Status Onset Colon adenocarcinoma Acute
--- NOTE | 2016-10-21 11:47 | HOSPPROG ---
Hospitalist Progress Note Assessment/Plan: * colon cancer status post resection POD #7. Path confirms invasive adenocarcinoma. Surgery to discuss path results. Will need oncology consult. Less distention today. Moving bowels, which are reportedly watery. Cont to advance care. * ?watery stool - check c diff * ileus - improving. encouraged ambulation. * history of massive PE in setting of previous uterine cancer several years ago * cont xarelto * iron deficiency anemia/acute blood loss anemia * status post 3 doses of IV iron * nutrition * taking clears, advance diet as tolerated * chest pain several days ago * Troponins are negative * Chest pain is resolved * Possibly musculoskeletal or GERD * dispo - cont inpt * full code Subjective: Pt feels well. Denies pain. +BM, which was diarrhea. No fevers. Ambulating. Tolerating small amts of clears. Objective: Vital Signs Temp Pulse Resp BP Pulse Ox 36.7 C 88 16 127/85 H 91 L 10/21/16 11:17 10/21/16 11:17 10/21/16 11:17 10/21/16 11:17 10/21/16 11:17 Laboratory Results 10/21/16 04:39 10/20/16 04:40 10/20/16 10/21/16 10/22/16 05:59 05:59 05:59 Intake Total 2067 2820 Output Total 1600 900 Balance 2067 1220 -900 - Physical Exam Constitutional: no apparent distress Eyes: PERRL Ears, Nose, Mouth, Throat: moist mucous membranes Cardiovascular: regular rate and rhythym Respiratory: no respiratory distress Gastrointestinal: normoactive bowel sounds, other (mild distention (improved from yesterday), non-tender, no r/r/g, +BS) Skin: warm Neurologic: AAOx3 Psychiatric: interacting appropriately ICD10 Worksheet Patient Problems: Problems Problem Status Onset Colon adenocarcinoma Acute
[2016-10-21] MEDS: RIVAROXABAN 20 MG TAB PO SCH (18:29)
[2016-10-22] MEDS: FAMOTIDINE 20 MG/NACL 50 ML IV SCH ×2 (08:19→20:05)
[2016-10-22] MEDS: PSYLLIUM METAMUCIL 1 PKT PO SCH (08:20)
--- NOTE | 2016-10-22 09:49 | HOSPPROG ---
Hospitalist Progress Note Assessment/Plan: * colon cancer status post resection POD #8. Path confirms invasive adenocarcinoma. Surgery to discuss path results. Will need oncology consult. Less distention today. Moving bowels, which are reportedly watery, c diff neg. Cont to advance diet, ambulate. Discussed with Dr. Ding. * ileus - improved. encouraged ambulation. * history of massive PE in setting of previous uterine cancer several years ago * cont xarelto * iron deficiency anemia/acute blood loss anemia * status post 3 doses of IV iron * nutrition * taking clears, advance diet as tolerated * chest pain several days ago * Troponins are negative * Chest pain is resolved * Possibly musculoskeletal or GERD * dispo - cont inpt, likely home by weekend. * full code Subjective: Pt doing great. She is tolerating clears, plans to advance diet. + BM yesterday. No pain, no N/V. No fevers. Wants to go home. Objective: Vital Signs Temp Pulse Resp BP Pulse Ox 36.8 C 71 18 126/75 H 93 10/22/16 07:36 10/22/16 07:36 10/22/16 07:36 10/22/16 07:36 10/22/16 07:36 Laboratory Results 10/21/16 04:39 10/20/16 04:40 10/21/16 10/22/16 10/23/16 05:59 05:59 05:59 Intake Total 2820 200 Output Total 1600 2750 Balance 1220 -2550 - Physical Exam Constitutional: no apparent distress Eyes: PERRL Ears, Nose, Mouth, Throat: moist mucous membranes Cardiovascular: regular rate and rhythym Respiratory: no respiratory distress Gastrointestinal: normoactive bowel sounds, soft, non-tender abdomen Skin: warm Musculoskeletal: full muscle strength Neurologic: AAOx3 Psychiatric: interacting appropriately ICD10 Worksheet Patient Problems: Problems Problem Status Onset Colon adenocarcinoma Acute
--- NOTE | 2016-10-22 10:52 | SOAPPROG ---
SOAP Progress Note Assessment/Plan: Assessment/Plan: POD#8 status post left colectomy for obstructing colon cancer 10/16/16 04:53 10/16/16 04:53 Patient ABO/Rh A POSITIVE 10/14/16 08:10 Total Bilirubin 2.0 mg/dL (0.1-1.4) H 10/16/16 04:53 AST 24 IU/L (14-46) 10/16/16 04:53 ALT 25 IU/L (9-52) 10/16/16 04:53 No complaints tylenol for pain No more nausea/emesis Liquid stool VSS Regular rate and rhythm Clear to auscultation bilaterally Abdomen is soft mildly distended incision clean dry and intact no signs of infection or herniation Extremities without edema Xarelto restarted Appreciate Medicine consult Ileus resolved Adv diet Anticipate d/c in 24-48 hr Continue to monitor for now. Encourage ambulation 10/18/16 17:54 10/19/16 17:44 10/20/16 16:27 10/22/16 10:40 Objective: Vital Signs Temp Pulse Resp BP Pulse Ox 36.8 C 71 18 126/75 H 93 10/22/16 07:36 10/22/16 07:36 10/22/16 07:36 10/22/16 07:36 10/22/16 07:36 Laboratory Results 10/21/16 04:39 10/20/16 04:40 10/21/16 10/22/16 10/23/16 05:59 05:59 05:59 Intake Total 2820 200 Output Total 1600 2750 Balance 1220 -2550 ICD10 Worksheet Patient Problems: Problems Problem Status Onset Colon adenocarcinoma Acute - ICD10 Problem Qualifiers (1) Colon adenocarcinoma
[2016-10-22] MEDS: RIVAROXABAN 20 MG TAB PO SCH (18:01)
[2016-10-23] MEDS: FAMOTIDINE 20 MG/NACL 50 ML IV SCH ×2 (09:16→20:08)
[2016-10-23] MEDS: PSYLLIUM METAMUCIL 1 PKT PO SCH (09:17)
--- NOTE | 2016-10-23 10:29 | HOSPPROG ---
Hospitalist Progress Note Assessment/Plan: * colon cancer status post resection POD #9. Path confirms invasive adenocarcinoma. Surgery discussed path results and will arrange oncology consult. She is tolerating a full diet and is moving bowels. Cont to advance diet, ambulate. Home per surgery. * ileus - improved. Ambulating. * history of massive PE in setting of previous uterine cancer several years ago * cont xarelto * iron deficiency anemia/acute blood loss anemia - hgb stable * status post 3 doses of IV iron * nutrition * tolerating full diet * chest pain several days ago * Troponins are negative * Chest pain is resolved * Possibly musculoskeletal or GERD * dispo - cont inpt, likely home by weekend, d/c per surg. * full code Subjective: Pt feels great. Denies pain. Tolerating full diet. Ambulating. Wants to go home. Objective: Vital Signs Temp Pulse Resp BP Pulse Ox 36.7 C 67 16 113/63 94 10/23/16 07:56 10/23/16 07:56 10/23/16 07:56 10/23/16 07:56 10/23/16 07:56 Laboratory Results 10/21/16 04:39 10/20/16 04:40 10/22/16 10/23/16 10/24/16 05:59 05:59 05:59 Intake Total 200 850 0 Output Total 2750 Balance -2550 850 0 - Physical Exam Constitutional: no apparent distress Eyes: PERRL Ears, Nose, Mouth, Throat: moist mucous membranes Cardiovascular: regular rate and rhythym Respiratory: no respiratory distress, clear to auscultation Gastrointestinal: normoactive bowel sounds, soft, non-tender abdomen Skin: warm Musculoskeletal: full muscle strength Neurologic: AAOx3 Psychiatric: interacting appropriately ICD10 Worksheet Patient Problems: Problems Problem Status Onset Colon adenocarcinoma Acute
--- NOTE | 2016-10-23 18:42 | SOAPPROG ---
SOAP Progress Note Assessment/Plan: Assessment/Plan: POD#8 status post left colectomy for obstructing colon cancer 10/16/16 04:53 10/16/16 04:53 Patient ABO/Rh A POSITIVE 10/14/16 08:10 Total Bilirubin 2.0 mg/dL (0.1-1.4) H 10/16/16 04:53 AST 24 IU/L (14-46) 10/16/16 04:53 ALT 25 IU/L (9-52) 10/16/16 04:53 Tolerating regular diet Pain controlled OOB in halls Pathology results given VSS Regular rate and rhythm Clear to auscultation bilaterally Abdomen is soft mildly distended incision clean dry and intact no signs of infection or herniation Extremities without edema Xarelto Appreciate Medicine consult Ileus resolved D/c in am Present at tumor board this upcoming Wednesday Continue to monitor for now. Encourage ambulation 10/18/16 17:54 10/19/16 17:44 10/20/16 16:27 10/22/16 10:40 10/23/16 18:41 Objective: Vital Signs Temp Pulse Resp BP Pulse Ox 36.9 C 72 16 129/89 H 92 10/23/16 16:00 10/23/16 16:00 10/23/16 16:00 10/23/16 16:00 10/23/16 16:00 Laboratory Results 10/21/16 04:39 10/20/16 04:40 10/22/16 10/23/16 10/24/16 05:59 05:59 05:59 Intake Total 200 850 0 Output Total 2750 Balance -2550 850 0 ICD10 Worksheet Patient Problems: Problems Problem Status Onset Colon adenocarcinoma Acute - ICD10 Problem Qualifiers (1) Colon adenocarcinoma
[2016-10-23] MEDS: RIVAROXABAN 20 MG TAB PO SCH (18:51)
[2016-10-24 08:24] VITALS: BP 125/84; PULSE 63; RESP 14; TEMP 98.3; O2SAT 90
[2016-10-24] MEDS: FAMOTIDINE 20 MG/NACL 50 ML IV SCH (08:55)
[2016-10-24] MEDS: PSYLLIUM METAMUCIL 1 PKT PO SCH (08:55)
--- NOTE | 2016-10-27 22:00 | PDDCSUM ---
Discharge Summary Discharge Summary: Vijaya Healy is a 56-year-old woman who presented for urgent colectomy for splenic colon cancer. She was found to have a colonic mass on screening colonoscopy by Dr. Galindo castro. The patient was subsequently seen by General surgery, underwent CT scan which did not show any metastatic disease but a large 11 cm splenic flexure mass. She presented to the hospital for colectomy underwent laparoscopic to open left colectomy with low anterior transverse proctosotomy. Postoperative ileus resolved without NG tube decompression. She was noted to have mild ascites but no sign of colonic leak. She had anemia of chronic disease microcytic prior to admission and was given 2 units of blood for acute blood loss anemia associated with symptomatic hypoxia. Past medical history significant for massive pulmonary embolus, uterine cancer. Past surgical history includes hysterectomy, tracheostomy, peg tube placement Past hospitalizations include pulmonary embolus with cardiopulmonary arrest in coma in 2013 No known drug allergies Medications at home include Xarelto 20 mg daily Social history the patient denies drinking or tobacco use. 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 Twenty-eight nodes were negative for cancer. Pathologic staging of T4 be due to extension into pericolonic omentum Plan: Outpatient medical oncology evaluation. Follow up in the office. Call with any questions regarding surgery. She had restarted her Xarelto in the hospital and will continue that as an outpatient. Discussion will be had at multidisciplinary rounds 1 week from discharge. The patient will call with concerns such as temperature greater than 101.5, inability eat, pain not controlled by medication, cardiopulmonary problems or other issues she thinks to be related to her hospitalization. All questions were answered. The patient and her were happy with the plan of care.
== END 2016-10-24 09:11 | disposition home or self-care (01) | DRG 330 ==
LOC: F3N 06:26 → F3E 07:21
PROVIDERS: ADMIT Surgery; ATTEND Surgery
PROC: 0DTG0ZZ Resection of Left Large Intestine, Open Approach (ICD-10-PCS; principal; 2016-10-14 09:00)
PROC: 0DJD8ZZ Inspection of Lower Intestinal Tract, Via Natural or Artificial Opening Endoscopic (ICD-10-PCS; principal; 2016-10-14 09:00)
PROC: 30233N1 Transfusion of Nonautologous Red Blood Cells into Peripheral Vein, Percutaneous Approach (ICD-10-PCS; 2016-10-15)
DX: C18.5 Malignant neoplasm of splenic flexure (principal); K91.89 Other postprocedural complications and disorders of digestive system; D62 Acute posthemorrhagic anemia; D63.8 Anemia in other chronic diseases classified elsewhere; Z53.31 Laparoscopic surgical procedure converted to open procedure; Z86.718 Personal history of other venous thrombosis and embolism; Z85.42 Personal history of malignant neoplasm of other parts of uterus; Z79.01 Long term (current) use of anticoagulants
CPT/HCPCS: J1100; J1335; J1650; J1885; J2001; J2250; J2370; J2405; J2550; J2704; J2780; J2916; J3010; P9016; Q9967

== ENCOUNTER → 2018-10-07 | Outpatient (CLI) | payer BC | LOC: FIMAGING 15:02 ==